=== PATIENT | female | born 1990 | race American Indian/Alaskan Native ===

== ENCOUNTER 2017-12-31 12:11 | Emergency (ER) | payer OTHER ==
[2017-12-31] MEDS ORDERED: Acetaminophen 325 MG Tab PO ONE (12:37)
--- NOTE | 2017-12-31 12:38 | EDM.PDOC ---
ED HPI GENERAL MEDICAL PROBLEM - General Chief Complaint: Upper Extremity Injury/Pain Stated Complaint: LEFT HAND INJURY Time Seen by Provider: 12/31/17 12:15 Source of Information: Reports: Patient History Limitations: Reports: No Limitations - History of Present Illness INITIAL COMMENTS - FREE TEXT/NARRATIVE: Patient is a 27-year-old male presents ED complaining of left hand and pain to the fourth and fifth finger. Patient was unloading approximately 80 pound pipe off a renee while pressure testing the pipe. The pipe rolled off injuring her left hand and fingers. Pain is localized with no radiation. She states her some slight numbness noted to the fourth and fifth finger. No previous injury to the affected area. She denies being . Offers no additional complaint. Left Hand Pain Score (Numeric/FACES): 10 - Related Data Allergies Allergy/AdvReac Type Severity Reaction Status Date / Time indomethacin Allergy Hives Verified 12/31/17 12:20 Home Meds: Home Meds . [No Known Home Meds] 12/31/17 [History] Social & Family History - Tobacco Use Smoking Status *Q: Never Smoker - Caffeine Use Caffeine Use: Reports: Coffee - Recreational Drug Use Recreational Drug Use: No Review of Systems - Review of Systems Review Of Systems: ROS reveals no pertinent complaints other than HPI. ED EXAM, GENERAL - Physical Exam Exam: See Below Exam Limited By: No Limitations General Appearance: Alert, WD/WN, No Apparent Distress Ears: Hearing Grossly Normal Nose: Normal Inspection Throat/Mouth: Normal Voice, No Airway Compromise Neck: Normal Inspection, Supple Respiratory/Chest: No Respiratory Distress, Lungs Clear, Normal Breath Sounds, No Accessory Muscle Use Cardiovascular: Normal Peripheral Pulses, Regular Rate, Rhythm Peripheral Pulses: 4+: Radial (L) Extremities: Normal Inspection, Other (On inspection of the left hand. Minimal swelling. Fourth and fifth finger are slightly flexed unable to move per patient. On examination she has pain along the fourth and fifth metacarpal, fourth and fifth MCP, and also fourth and fifth fingers. No bony abnormalities noted. No bruising present. I was able to full extend the fingers with no crepitus noted. Ice applied.) Neurological: Alert, Oriented, CN II-XII Intact Psychiatric: Normal Affect, Normal Mood Skin Exam: Warm, Dry, Intact, Normal Color Course - Vital Signs Last Recorded V/S: Last Vital Signs Temp 98.3 F 12/31/17 12:17 Pulse 57 L 12/31/17 12:17 Resp 18 12/31/17 12:17 BP 136/91 H 12/31/17 12:17 Pulse Ox 98 12/31/17 12:17 - Orders/Labs/Meds Orders: Active Orders 24 hr Category Date Time Status Hand Comp Min 3V Lt [CR] Stat Exams 12/31/17 12:26 Taken Meds: Medications Discontinued Medications Generic Name Dose Route Start Last Admin Trade Name Carrillo PRN Reason Stop Dose Admin Acetaminophen 650 mg 12/31/17 12:37 12/31/17 12:47 Tylenol PO 12/31/17 12:38 650 mg NOW ONE Administration - Re-Assessments/Exams Free Text/Narrative Re-Assessment/Exam: Order x-ray of the left hand and fingers. Ordered Tylenol 650 mg by mouth. X-ray of the left hand and fingers reviewed with Dr. Jordan. No acute bony abnormalities noted. Final interpretation is pending. Departure - Departure Time of Disposition: 13:31 Disposition: Home, Self-Care 01 Condition: Good Clinical Impression: Crushing injury of left hand and finger Qualifiers: Encounter type: initial encounter Qualified Code(s): S67.22XA - Crushing injury of left hand, initial encounter - Discharge Information Instructions: Crush Injury of the Hand Referrals: PCP,None [Primary Care Provider] - Forms: ED Department Discharge Additional Instructions: No obvious fractures noted to the left hand and/or fingers. Treatment will consist of ice 3 times a day, 30 minutes in duration, do not apply ice directly on the skin. Ibuprofen for discomfort as needed. Elevate when able to reduce any swelling and pain. Refrain from any activities that cause worsening discomfort. Follow-up with your primary care provider locally for reevaluation. Return to the ED if you developed any new or worsening symptoms. - My Orders Last 24 Hours: My Active Orders 12/31/17 12:26 Hand Comp Min 3V Lt [CR] Stat - Assessment/Plan Last 24 Hours: My Active Orders 12/31/17 12:26 Hand Comp Min 3V Lt [CR] Stat
--- NOTE | 2018-01-01 14:25 | CR ---
Left hand: Four views of the left hand were obtained. Comparison: No previous study. Joint spaces are preserved. No fracture, dislocation or other bony abnormality is seen. Impression: 1. No abnormality is identified on left hand exam. Diagnostic code #1
== END 2017-12-31 13:45 | disposition home or self-care (01) ==
LOC: JD.ED 12:11
DX: S67.195A Crushing injury of left ring finger, initial encounter (principal); S67.197A Crushing injury of left little finger, initial encounter; S67.22XA Crushing injury of left hand, initial encounter; Z88.8 Allergy status to other drugs, medicaments and biological substances; W23.0XXA Caught, crushed, jammed, or pinched between moving objects, initial encounter
CPT/HCPCS: 73130; 99283; A9270